=== PATIENT | female | born 1955 | race African-American/Black ===

== ENCOUNTER 2017-10-23 14:08 | Outpatient (CLI) | payer BC ==
--- NOTE | 2017-10-23 15:12 | RAD ---
TWO VIEWS CHEST: History: Dyspnea. Date: 10-23-17 FINDINGS: Ectasia and calcification of the aorta is seen. Mild pulmonary vascular congestion is seen. No eviden ce of effusions or pneumonia seen. IMPRESSION: Cardiomegaly, pulmonary vascular congestion, and ectasia of the aorta. POS: [facility]
== END 2017-10-23 14:09 | disposition home or self-care (01) ==
LOC: RAD 14:08
PROVIDERS: ATTEND Internal Medicine Pulmonary Disease
DX: R06.00 Dyspnea, unspecified (principal); I51.7 Cardiomegaly; R09.89 Other specified symptoms and signs involving the circulatory and respiratory systems; I77.810 Thoracic aortic ectasia
CPT/HCPCS: 71046

== ENCOUNTER 2017-12-11 19:30 | Outpatient (CLI) | payer BC | END 2017-12-11 19:31 | disposition home or self-care (01) | LOC: SLEEPLAB 19:30 | PROVIDERS: ATTEND Internal Medicine Pulmonary Disease | DX: G47.33 Obstructive sleep apnea (adult) (pediatric) (principal); G47.00 Insomnia, unspecified; E66.9 Obesity, unspecified; R06.83 Snoring; F32.9 Major depressive disorder, single episode, unspecified; Z68.43 Body mass index [BMI] 50.0-59.9, adult | CPT/HCPCS: 95811 ==

== ENCOUNTER 2018-06-21 10:53 | Outpatient (CLI) | payer BC ==
--- NOTE | 2018-06-21 11:10 | RAD ---
[facility] knee 4 views: 06/21/2018 COMPARISON: None HISTORY: Left knee pain for one month. No history of injury FINDINGS: There is enthesophyte formation at the insertion of the quadriceps tendon and origin of the patellar tendon. No significant knee joint effusion. Mild patellofemoral joint space narrowing with posterior patellar osteophyte formation. There is moderate medial and moderate lateral compartment na rrowing with osteophyte formation of the medial and lateral femoral condyle as well as the medial and lateral tibial plateau. No acute fracture or dislocation. IMPRESSION: Altered compartment degenerative joint disease. No acute fracture or dislocation.
== END 2018-06-21 10:54 | disposition home or self-care (01) ==
LOC: SCSRAD 10:53
PROVIDERS: ATTEND Nurse Practitioner Family
DX: M25.562 Pain in left knee (principal); M17.12 Unilateral primary osteoarthritis, left knee

== ENCOUNTER 2021-08-12 12:12 | Outpatient (CLI) | payer BC | END 2021-08-12 12:13 | disposition home or self-care (01) | LOC: SCSRAD 12:12 | PROVIDERS: ATTEND Family Medicine | DX: R09.02 Hypoxemia (principal) | CPT/HCPCS: 71046 ==

== ENCOUNTER 2021-09-22 10:17 | Outpatient (CLI) | payer BC | END 2021-09-22 10:18 | disposition home or self-care (01) | LOC: SCSCT 10:17 | PROVIDERS: ATTEND Internal Medicine Cardiovascular Disease | DX: I71.2 Thoracic aortic aneurysm, without rupture (principal); R59.0 Localized enlarged lymph nodes | CPT/HCPCS: 71275; 82565 ==